=== PATIENT | female | born 1995 | race Hispanic/Latino ===

== ENCOUNTER 2018-08-11 19:13 | Emergency (ER) | payer SELFPAY ==
[2018-08-11 19:53] VITALS: BP 138/95; PULSE 84; RESP 18; TEMP 99.1; O2SAT 99
[2018-08-11] MEDS ORDERED: Lidocaine 1% Inj (20ml) IJ ONE (20:05)
[2018-08-11] MEDS ORDERED: Tdap Vaccine 0.5 ml Vial (10-64 yrs) IM ONE ×2 (20:05→20:14)
--- NOTE | 2018-08-11 20:18 | ED PDOC ---
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 Patient reports at 7 pm tonight she was washing dishes when a glass cracked in her hand and sustained a cut to base of thumb, prompting ED evaluation. She states she did not clean it out and came straight here. Patient does not recall her last tetanus shot and denies taking medications prior to arrival. Otherwise: (-) foreign body sensation, (-) fever, (-) chills. PMD: None provided Past Medical History Reviewed: Historical Data, Nursing Documentation, Vital Signs Vital Signs: Last Vital Signs Temp 99.1 F 08/11/18 19:52 Pulse 84 08/11/18 19:52 Resp 18 08/11/18 19:52 BP 138/95 H 08/11/18 19:52 Pulse Ox 99 08/11/18 19:52 - Medical History PMH: No Chronic Diseases - Surgical History Other surgeries: A procedure for sinuses - Family History Family History: States: Unknown Family Hx - Social History Current smoker - smoking cessation education provided: No Alcohol: None Drugs: Denies - Home Medications Home Medications: Ambulatory Orders Medication Instructions Recorded Bacitracin Ointment [Bacitracin] 1 applic TOP BID #1 tube 08/11/18 Naproxen 500 mg PO BID PRN #20 tab 08/11/18 - Allergies Allergies/Adverse Reactions: Allergies Allergy/AdvReac Type Severity Reaction Status Date / Time No Known Allergies Allergy Verified 08/11/18 19:54 Review of Systems ROS Statement: Except As Marked, All Systems Reviewed And Found Negative Musculoskeletal: Positive for: Hand Pain (Left hand injury) Physical Exam - Reviewed Nursing Documentation Reviewed: Yes Vital Signs Reviewed: Yes - Physical Exam Comments: GENERAL APPEARANCE: Patient is awake, alert, oriented x 3, in no acute distress. Resting comfortably. SKIN: Warm, dry; (-) cyanosis. NECK: Supple, FROM CHEST AND RESPIRATORY: (-) rales, (-) rhonchi, (-) wheezes; breath sounds equal bilaterally. Respirations even and nonlabored, speaking in full sentences. HEART AND CARDIOVASCULAR: (-) irregularity Hand and digits: (+) 1.5cm curvilinear laceration to dorsum of proximal left first digit with active bleeding (-) FB visualized. (+) Full ROM of left hand/d igits, (+) Sensation and cap refill intact. Remainder of hand and wrist nontender with (-) injury. NEURO AND PSYCH: Mental status as above. Gait: steady. Speech: clear. (-) facial asymmetry - ECG O2 Sat by Pulse Oximetry: 99 (RA) Pulse Ox Interpretation: Normal Medical Decision Making Medical Decision Making: Time: 2004 Initial impression: finger laceration Initial plan: --Tetanus IM --Lidocaine 1% INJ for laceration repair --Re-evaluation 2030 Laceration repair performed by Isha YE. See procedure note. Patient tolerated procedure well. Bacitracin, telfa, and cling bandage applied. Educated on wound care. Suture removal in 7-10 days. On re-evaluation, patient reports improvement of symptoms. On exam, patient remains AAOx3, in no acute distress. Vitals stable. Lab / Diagnostic results d/w the patient in great detail. Diagnosis of finger laceration d/w the patient. Based on history, exam and diagnostic results, plan will be for outpatient follow up with PMD/hand. Patient instructed to follow-up with pmd / referral provided / the clinic in 1- 2 days without fail. Advised to take medication as prescribed. Return to the emergency room at any time for any new or worsening symptoms. Patient states she fully agrees with and understands discharge instructions. States that she agrees with the plan and disposition. Verbalized and repeated discharge instructions and plan. I have given the patient opportunity to ask any additional questions. Scribe Attestation: Documented by Hannah Love acting as a scribe for Luz Vieira PA-C. Provider Scribe Attestation: All medical record entries made by the Scribe were at my direction and personally dictated by me. I have reviewed the chart and agree that the record accurately reflects my personal performance of the history, physical exam, medical decision making, and the department course for this patient. I have also personally directed, reviewed, and agree with the discharge instructions and disposition. Disposition - Clinical Impression Clinical Impression: Finger laceration - Patient ED Disposition Is Patient to be Admitted: No Counseled Patient/Family Regarding: Studies Performed, Diagnosis, Need For Followup, Rx Given - Disposition Referrals: primary, doctor [Other] Bj Henao MD [Medical Doctor] - Disposition: Routine/Home Disposition Time: 20:45 Condition: STABLE Additional Instructions: Suture removal in 7-10 days. The emergency medical care you received today was directed at your acute symptoms. If you were prescribed any medication, please fill it and take as directed. It may take several days for your symptoms to resolve. Return to the Emergency Department if your symptoms worsen, do not improve, or if you have any other problems. Please contact your doctor in 2 days for re-evaluation and follow up / or call one of the physicians/clinics you have been referred to that are listed on the Patient Visit Information form that is included in your discharge packet. Bring any paperwork you were given at discharge with you along with any medications you are taking to your follow up visit. Our treatment cannot replace ongoing medical care by a primary care provider (PCP) outside of the emergency department. Prescriptions: Bacitracin Ointment [Bacitracin] 1 applic TOP BID #1 tube Naproxen 500 mg PO BID PRN #20 tab PRN Reason: Pain, Moderate (4-7) Instructions: Laceration Repair, Wound Care, Laceration Repair With Stitches (DC) Forms: [email or web address] (Lao) Print Language: BRAZILIAN - POA Present On Arrival: None Procedure: Wound Repair - Time Performed Time Performed: 20:30 - Time Out Time Out: Side verified, Site verified, Patient ID confirmed - Procedure Procedure: Wound Repair: Finger Laceration - Consent Obtained Consent obtained: Verbal - Performed by Performed by: Mid-level Provider (Isha YE) - Indications Indication(s):: Laceration - Location Location:: Left Finger:: Thumb Shape:: Curvilinear Dimensions Length cm: 1.5 Depth:: Epidermis - Anesthetic Technique Anesthetic Technique: Local (3mL) Local/Regional Anesthetic:: Lidocaine 1% - Debris Debris:: None - Irrigated Irrigated with ml of normal saline: 200 - Complexity Complexity:: Simple (one layer) - Wound repair method Sutures:: # (7), Size (5-0), Type (Prolene), Technique (Simple Interrupted) - Complications Complications: None - Patient tolerated procedure Patient Tolerated Procedure:: Well
== END 2018-08-11 21:40 | disposition home or self-care (01) ==
LOC: H.ER 19:13
DX: S61.012A Laceration without foreign body of left thumb without damage to nail, initial encounter (principal); W25.XXXA Contact with sharp glass, initial encounter; Y93.G1 Activity, food preparation and clean up; Z23 Encounter for immunization